=== PATIENT | male | born 1970 | race Caucasian/White ===

== ENCOUNTER 2018-08-02 14:12 | Emergency (ER) | payer OTHER ==
[2018-08-02] MEDS ORDERED: Cyclobenzaprine TAB* 10 MG PO ONE (15:59)
[2018-08-02] MEDS ORDERED: Acetaminophen TAB* 325 MG PO ONE (16:00)
--- NOTE | 2018-08-02 16:03 | ED ---
Back Pain - HPI Summary HPI Summary: A 47 y/o male presents to [facility] with a chief complaint of lower back pain after falling down 2 steps of a ladder at 23:30 08/01/18. He reports more pain on the left side. He describes his pain as sharp and constant and rates his pain as an 8/10. He claims that his leg was straight and he fell forward. He reports that his pain is worsened with movement. He has tried tylenol, ice and hot pack but nothing has alleviated his pain. He denies any radiating pain to his legs, testicles or numbness. - History of Current Complaint Chief Complaint: EDBackInjuryPain Stated Complaint: BACK PAIN Time Seen by Provider: 08/02/18 15:43 Hx Obtained From: Patient Onset/Duration: Sudden Onset, Lasting Hours, Still Present Onset/Duration: Started Hours Ago, Traumatic, Still Present, Resolved Timing: Constant, Lasting Hours Back Pain Location: Is Diffuse - lower back, more pain on the left Pain Intensity: 8 Pain Scale Used: 0-10 Numeric Character: Sharp Aggravating Symptom(s): Movement Alleviating Symptom(s): Nothing Associated Signs And Symptoms: Negative: Abdominal Pain, Other - leg pain - Allergies/Home Medications Allergies/Adverse Reactions: Allergies Allergy/AdvReac Type Severity Reaction Status Date / Time lidocaine Allergy Unknown Verified 08/02/18 14:41 Reaction Details naproxen Allergy Vomiting Verified 08/02/18 14:41 tramadol Allergy Vomiting Verified 08/02/18 14:41 novacain Allergy Anaphylatic Uncoded 08/02/18 14:41 Shock PMH/Surg Hx/FS Hx/Imm Hx Endocrine/Hematology History: Denies: Hx Anticoagulant Therapy, Hx Diabetes, Hx Thyroid Disease Cardiovascular History: Denies: Hx Congestive Heart Failure, Hx Deep Vein Thrombosis, Hx Hypertension , Hx Myocardial Infarction, Hx Pacemaker/ICD Respiratory History: Denies: Hx Asthma, Hx Chronic Obstructive Pulmonary Disease (COPD), Hx Lung Cancer, Hx Pneumonia, Hx Pulmonary Embolism GI History: Denies: Hx Gall Bladder Disease, Hx Gastrointestinal Bleed, Hx Ulcer, Hx Urosepsis History: Denies: Hx Kidney Stones, Hx Renal Disease Sensory History: Denies: Hx Hearing Aid Neurological History: Denies: Hx Dementia, Hx Migraine, Hx Seizures, Hx Transient Ischemic Attacks (TIA) Psychiatric History: Denies: Hx Anxiety, Hx Depression, Hx Panic Disorder - JUST WITH IV'S, Hx Schizophrenia, Hx Bipolar Disorder - Surgical History Surgery Procedure, Year, and Place: TONSILS;. L knee arthroscopic surgery;. LEFT THUMB REATTACHED;. DENTAL SURGERY; Infectious Disease History: No Infectious Disease History: Denies: History Other Infectious Disease, Traveled Outside the [place] in Last 30 Days - Family History Known Family History: Negative: Hypertension, Diabetes - Social History Alcohol Use: Occasionally Hx Substance Use: No Substance Use Type: Reports: None Hx Tobacco Use: Yes Smoking Status (MU): Heavy Every Day Tobacco Smoker Amount Used/How Often: 1.5 PPD Review of Systems Negative: Fever Negative: pain Musculoskeletal: Negative - leg pain Positive: Other - positive:back pain Negative: Numbness All Other Systems Reviewed And Are Negative: Yes Physical Exam - Summary Physical Exam Summary: Appearance: Well appearing, no pain distress Skin: warm, dry, reflects adequate perfusion Head/face: normal Eyes: EOMI, PARMINDER ENT: mucous membranes moist Neck: supple, non-tender Respiratory: CTA, breath sounds present Cardiovascular: RRR, pulses symmetrical Abdomen: non-tender, soft Bowel Sounds: present Musculoskeletal: Left lumbar muscular tenderness, midline low lumbar musculature. Neuro: normal, sensory motor intact, A&Ox3 Triage Information Reviewed: Yes Vital Signs On Initial Exam: Initial Vitals Temp Pulse Resp BP Pulse Ox 98.7 F 100 14 125/91 99 08/02/18 14:25 08/02/18 14:25 08/02/18 14:25 08/02/18 14:25 08/02/18 14:25 Vital Signs Reviewed: Yes Diagnostics - Vital Signs Vital Signs Temp Pulse Resp BP Pulse Ox 08/02/18 14:25 98.7 F 100 14 125/91 99 - Laboratory Lab Statement: Any lab studies that have been ordered have been reviewed, and results considered in the medical decision making process. - Radiology lumbar spine x-ray Radiology Interpretation Completed By: Radiologist Summary of Radiographic Findings: 1. STRAIGHTENING OF THE LUMBAR SPINE. 2. NO EVIDENCE FOR FRACTURE. ED provider has reviewed this imaging report. Back Pain Course/Dx - Course Course Of Treatment: Nurse's notes reviewed. Straightening of the lumbar lordotic curve on x-ray. Muscular tenderness without neurologic findings. Antalgic gait. Treat symptomatically. Prescription for physical therapy. Work -related injury. Follow-up primary care physician. - Diagnoses Differential Diagnosis/HQI/PQRI: Positive: Fracture, Strain, Sprain Provider Diagnoses: Fall, Lumbar strain Discharge - Sign-Out/Discharge Documenting (check all that apply): Patient Departure - DC - Discharge Plan Condition: Improved Disposition: HOME Prescriptions: Cyclobenzaprine TAB* [Flexeril 10 MG TAB*] 10 mg PO TID PRN #12 tab PRN Reason: muscle pain Patient Education Materials: Low Back Strain (ED), Lower Back Exercises (ED) Forms: *Work Release Referrals: Jovi PEREZ,Ricardo Hendrickson [Primary Care Provider] - Additional Instructions: Ice, range of motion exercises. Ibuprofen for discomfort. Go and schedule with physical therapy for treatment. A prescription for this has been given. Follow-up with her primary care physician for clearance to return to work. Return with numbness/weakness in the legs, difficulty with bowel or bladder, worse or other concerns. - Billing Disposition and Condition Condition: IMPROVED Disposition: Home - Attestation Statements Document Initiated by Scribe: Yes Documenting Scribe: Nato Rodas Provider For Whom Joshua is Documenting (Include Credential): Kenneth Lira MD Scribe Attestation: Nato Castro, scribed for Kenneth Lira MD on 08/02/18 at 1723. Scribe Documentation Reviewed: Yes Provider Attestation: The documentation as recorded by the [facility] accurately reflects the service I personally performed and the decisions made by , Kenneth Lira MD Status of Scribe Document: Viewed
[2018-08-02] MEDS ORDERED: Ketorolac INJ* 60 MG/2 ML VIAL IM ONE (16:22)
[2018-08-02 17:04] VITALS: BP 155/119
== END 2018-08-02 17:02 | disposition home or self-care (01) ==
LOC: ED 14:12
DX: S39.012A Strain of muscle, fascia and tendon of lower back, initial encounter (principal); F17.210 Nicotine dependence, cigarettes, uncomplicated; W11.XXXA Fall on and from ladder, initial encounter; Y92.9 Unspecified place or not applicable
CPT/HCPCS: 72100; 96372; 99283; A9270-GY; J1885

== ENCOUNTER 2018-09-14 16:01 | Emergency (ER) | payer OTHER ==
[2018-09-14 16:10] VITALS: BP 134/82
--- NOTE | 2018-09-14 16:35 | UC ---
Back Pain HPI - HPI Summary HPI Summary: Patient presents to urgent care for reevaluation of his low back pain. Patient states the first week of July he was stepping off the bottom rung of a ladder work. Patient states he misstepped and twitched his back. Patient states she was evaluated in the emergency department x-ray showed straightening of the spine but no fracture. Patient was given a prescription for Flexeril which he took with artifact. Patient states he has not seen anybody since. Patient denies history of back issues in the same area. Patient states he's had difficulty getting comfortable. Patient's been taking Tylenol every 4 hours. No paresthesias. No bowel or bladder changes. No paresthesias or leg weakness. Patient states he only work today because of pain. Last Tylenol was approximately 3 hours ago. Patient's medications reviewed this visit. Patient states this is a workman's comp injury and he reported that his first evaluation. - History of Current Complaint Chief Complaint: UCBackPain Stated Complaint: BACK PAIN Time Seen by Provider: 09/14/18 16:20 Hx Obtained From: Patient, Medical Records Onset/Duration: Gradual Onset Severity Initially: Moderate Severity Currently: Severe Pain Intensity: 8 Pain Scale Used: 0-10 Numeric Back Pain: Is Discrete @ - paraspinal lumbar Aggravating Factor(s): Movement, Lifting - Allergies/Home Medications Allergies/Adverse Reactions: Allergies Allergy/AdvReac Type Severity Reaction Status Date / Time lidocaine Allergy Severe Anaphylatic Verified 09/14/18 16:11 Shock naproxen Allergy Vomiting Verified 09/14/18 16:11 tramadol Allergy Vomiting Verified 09/14/18 16:11 novacain Allergy Severe Anaphylatic Uncoded 09/14/18 16:11 Shock Home Medications: Home Medications Acetaminophen TAB* [Tylenol TAB*] 1,000 mg PO Q2H PRN 09/14/18 [History Confirmed 09/14/18] diPHENhydraMINE PO* [Benadryl PO 25 MG TAB*] 25 mg PO Q6H PRN 09/14/18 [History Confirmed 09/14/18] PMH/Surg Hx/FS Hx/Imm Hx Previously Healthy: Yes Other History Of: Negative For: HIV, Hepatitis B, Hepatitis C, Anticoagulant Therapy - Surgical History Surgical History: Yes Surgery Procedure, Year, and Place: TONSILS;. L knee arthroscopic surgery;. LEFT THUMB REATTACHED;. DENTAL SURGERY; - Family History Known Family History: Positive: Non-Contributory Negative: Hypertension, Diabetes - Social History Occupation: Employed Full-time - [employer] Lives: With Family Substance Use Type: None Smoking Status (MU): Heavy Every Day Tobacco Smoker Amount Used/How Often: 1.5 PPD Review of Systems All Other Systems Reviewed And Are Negative: Yes Motor: Positive: Other - back pain Is Patient Immunocompromised?: No Physical Exam - Summary Physical Exam Summary: Vital Signs Reviewed: Yes A+Ox3, discomfort with movement Eyes: Conjunctiva Clear, ENT: Hearing grossly normal Neck: Positive: Supple Respiratory: Positive: No respiratory distress, No accessory muscle use + CTA throughout no w/r Cardiovascular: RRR nl s1, s2 no m/r CBT <2 sec Musculoskeletal Exam: no pain c/t/l/s Full AROM. + TTP paraspinal lumbar area R >L with palpable spasm. + SLE b/l + flex/ext knee, ankle + great toe extension , Neurological: Positive: Alert, + sensation throughout 2+ patellar b/l without clonus Psychological: Positive: Normal Response To Family Skin: Positive: no rash, no ecchymosis Triage Information Reviewed: Yes Vital Signs: Initial Vital Signs Temp 97.6 F 09/14/18 16:06 Pulse 75 09/14/18 16:06 Resp 16 09/14/18 16:06 BP 134/82 09/14/18 16:06 Pulse Ox 99 09/14/18 16:06 Back Pain Course/Dx - Course Course Of Treatment: Patient presents for reevaluation ongoing low back pain. Patient states he slipped off last from of a ladder at work approximately 6 weeks ago. Patient was seen in the ED. X-rays are negative. Patient has not seen running follow-up. On exam patient appears uncomfortable. Patient with noted paraspinal spasm bilateral lumbar area right worse than left. Patient distal CSM intact. Discussed with patient treatment regimen. Motrin/Tylenol every 3 hours. Heat and stretching. Flexeril twice a day with precautions. Patient given a work note for tomorrow. Patient given follow-up with both physical therapy referral as well as occupational medicine. Patient states comfort agreement with plan. Patient given strict return precautions. - Differential Dx/Diagnosis Provider Diagnosis: Lumbar back pain Discharge - Sign-Out/Discharge Documenting (check all that apply): Patient Departure All imaging exams completed and their final reports reviewed: No Studies - Discharge Plan Condition: Stable Disposition: HOME Prescriptions: Cyclobenzaprine TAB* [Flexeril 10 MG TAB*] 10 mg PO BID PRN #10 tab PRN Reason: back spasm Patient Education Materials: Acute Low Back Pain (ED), Muscle Spasm (ED), Lower Back Exercises (ED) Forms: *Work Release Referrals: Bogdan Powell MD [Medical Doctor] - Jovi PEREZ,Ricardo Hendrickson [Primary Care Provider] - Additional Instructions: - Alternate ibuprofen (Advil. Motrin) 600mg and Tylenol every 3 hours for pain or fever. Take with food. Do NOT take for more then 4-5 days - Take flexeril as prescribed for spasm - this medication may cause drowsiness - do not drive, operate machinery or drink alcohol while taking this mediation - apply moist heat to your back - once your muscles are warm - slow, gentle stretching exercises - if you sleep on your back, place a pillow under your knees. If you sleep on your side, place a pillow between your knees - Contact Dr. Powell - the occupational medicine doctor tomorrow to schedule a follow-up appointment. You should also contact physical therapy to arrange an appointment - Billing Disposition and Condition Condition: STABLE Disposition: Home
== END 2018-09-14 17:00 | disposition home or self-care (01) ==
LOC: UCEAST 16:01
DX: M54.5 Low back pain (principal); F17.210 Nicotine dependence, cigarettes, uncomplicated; Z88.4 Allergy status to anesthetic agent; Z88.5 Allergy status to narcotic agent
CPT/HCPCS: 99212; G0463